=== PATIENT | male | born 2005 | race Asian ===

== ENCOUNTER 2024-05-23 15:42 | Emergency (ER) | payer OTHER ==
[~2024-05-23] VITALS: Ht 162.6 cm; Wt 72.7 kg
[2024-05-23 21:46] VITALS: BP 136/85; TEMP 98; O2SAT 99
== END 2024-05-23 21:45 | disposition home or self-care (01) ==
LOC: M ED 15:42
DX: S09.90XA Unspecified injury of head, initial encounter (principal); W07.XXXA Fall from chair, initial encounter; Y92.9 Unspecified place or not applicable; Y93.9 Activity, unspecified; Y99.1 Military activity; Z88.0 Allergy status to penicillin